=== PATIENT | male | born 1955 | race Caucasian/White ===

== ENCOUNTER 2020-03-05 18:48 | Observation (INO) | payer OTHER ==
[2020-03-05] MEDS ORDERED: Sodium Chloride 0.9% 1,000 ML IV ONE (19:00)
[2020-03-05] MEDS ORDERED: Sodium Chloride 0.9% 2.5 ML Syringe FLUSH PRN (19:00)
[2020-03-05] MEDS ORDERED: Sodium Chloride 0.9% 10 ML Syringe FLUSH PRN (19:00)
[2020-03-05] MEDS ORDERED: Acetaminophen 500 MG Tab PO ONE (19:05)
[2020-03-05] MEDS ORDERED: Acetaminophen 500 MG Tab ONE (19:06)
--- NOTE | 2020-03-05 19:17 | EDM.PDOC ---
<Emily Stacy R - Last Filed: 03/05/20 22:06> ED HPI GENERAL MEDICAL PROBLEM - General Chief Complaint: Fever Stated Complaint: FEVER OF 104 Time Seen by Provider: 03/05/20 18:53 Source of Information: Reports: Patient History Limitations: Reports: No Limitations - History of Present Illness INITIAL COMMENTS - FREE TEXT/NARRATIVE: Presents reporting dysuria. The patient states that about 4 hours ago he had burning and frequency of urination and his urine was dark. He also began having shaking chills. He had a formed brown stool today. No personal or family history of kidney stones, nausea, vomiting, abdominal pain, back pain, breathing problems. He has a history of diabetes, hypertension, dyslipidemia and has had an anxiety attack in the past. - Related Data Allergies Allergy/AdvReac Type Severity Reaction Status Date / Time No Known Allergies Allergy Verified 03/06/20 01:29 Home Meds: Home Meds . [Unable to Verify Home Med List] 03/05/20 [History] ED ROS GENERAL - Review of Systems Review Of Systems: Comprehensive ROS is negative, except as noted in HPI. ED EXAM, SEPSIS - Physical Exam Exam: See Below Exam Limited By: No Limitations General Appearance: Alert, No Apparent Distress Ears: Normal External Exam Nose: Normal Inspection Throat/Mouth: Normal Inspection Head: Atraumatic, Normocephalic Neck: Normal Inspection Respiratory/Chest: No Respiratory Distress, Lungs Clear, Normal Breath Sounds Cardiovascular: Normal Peripheral Pulses, Regular Rate, Rhythm, No Murmur GI/Abdominal Exam: Normal Bowel Sounds, Soft, Non-Tender, No Distention Rectal (Males) Exam: Normal Exam Back: Normal Inspection Extremities: Normal Inspection Neurological: Alert, Oriented, Normal Cognition Psychiatric: Normal Affect, Normal Mood Skin: Warm, Dry, Intact, Normal Color, No Rash Course - Re-Assessments/Exams Free Text/Narrative Re-Assessment/Exam: 03/05/20 22:06 Case discussed with . No source for elevated temp and lactate was found after extensive workup. The patient states he feels fine after po acetaminophen and ibuprofen. T 100.4 Departure - Departure Disposition: Refer to Observation Clinical Impression: Cholecystitis Sepsis Qualifiers: Sepsis type: sepsis due to unspecified organism Sepsis acute organ dysfunction status: without acute organ dysfunction Qualified Code(s): A41.9 - Sepsis, unspecified organism - Discharge Information <Cheryl Flores - Last Filed: 03/06/20 02:07> Course - Vital Signs Text/Narrative:: Patient with fevers, rigors, elevated lactic acid, with mild dysuria but unremarkable UA, white blood cell count not elevated, slightly elevated bilirubin level and mild hypoxia. Chest x-ray negative. CT chest also without acute findings or pneumonia. Ultrasound of the gallbladder does show some wall thickening and gallstones of the gallbladder though no pericholecystic fluid and a negative Boyce sign. However given the patient's sepsis concern for possible developing cholecystitis, therefore will be given Zosyn and admitted to the hospital. Last Recorded V/S: Last Vital Signs Temp 99 F 03/06/20 01:30 Pulse 86 03/06/20 01:30 Resp 20 03/06/20 01:30 BP 122/60 03/06/20 01:30 Pulse Ox 96 03/06/20 01:30 - Orders/Labs/Meds Orders: Active Orders 24 hr Category Date Time Status CULTURE BLOOD [BC] Stat Lab 03/05/20 18:55 Received CULTURE BLOOD [BC] Stat Lab 03/05/20 19:22 Received Sodium Chloride 0.9% [Normal Saline] 1,000 ml Med 03/05/20 23:45 Active IV ASDIRECTED Sodium Chloride 0.9% [Saline Flush] Med 03/05/20 19:00 Active 10 ml FLUSH ASDIRECTED PRN Sodium Chloride 0.9% [Saline Flush] Med 03/05/20 19:00 Active 2.5 ml FLUSH ASDIRECTED PRN Blood Culture x2 Reflex Set [OM.PC] Stat Oth 03/05/20 19:00 Ordered Isolation [COMM] Routine Oth 03/05/20 20:46 Active Saline Lock Insert [OM.PC] Stat Oth 03/05/20 19:00 Ordered Severe Sepsis Onset Time [OM.PC] Stat Oth 03/05/20 19:00 Ordered Medication Orders Sodium Chloride (Normal Saline) 1,000 mls @ 250 mls/hr IV ASDIRECTED [facility] Last Admin: 03/06/20 00:27 Dose: 250 mls/hr Documented by: ANH Sodium Chloride (Normal Saline) 1,000 mls @ 250 mls/hr IV ASDIRECTED [facility] Sodium Chloride (Saline Flush) 10 ml FLUSH ASDIRECTED PRN PRN Reason: Keep Vein Open Sodium Chloride (Saline Flush) 2.5 ml FLUSH ASDIRECTED PRN PRN Reason: Keep Vein Open Labs: Laboratory Tests 03/05/20 03/05/20 03/05/20 Range/Units 19:15 19:22 19:22 WBC 6.46 (4.0-11.0) K/uL RBC 4.34 L (4.50-5.90) M/uL Hgb 14.5 (13.0-17.0) g/dL Hct 43.2 (38.0-50.0) % MCV 99.5 H (80.0-98.0) fL MCH 33.4 H (27.0-32.0) pg MCHC 33.6 (31.0-37.0) g/dL RDW Std Deviation 50.5 (28.0-62.0) fl RDW Coeff of Matthew 14 (11.0-15.0) % Plt Count 61 L (150-400) K/uL MPV 12.30 H (7.40-12.00) fL Neut % (Auto) 86.4 H (48.0-80.0) % Lymph % (Auto) 9.0 L (16.0-40.0) % Bosque % (Auto) 3.6 (0.0-15.0) % Eos % (Auto) 0.8 (0.0-7.0) % Baso % (Auto) 0.2 (0.0-1.5) % Neut # (Auto) 5.6 (1.4-5.7) K/uL Lymph # (Auto) 0.6 (0.6-2.4) K/uL Bosque # (Auto) 0.2 (0.0-0.8) K/uL Eos # (Auto) 0.1 (0.0-0.7) K/uL Baso # (Auto) 0.0 (0.0-0.1) K/uL Nucleated RBC % 0.0 /100WBC Nucleated RBCs # 0 K/uL Lactate (0.20-2.00) mmol/L Sodium 141 (136-148) mmol/L Potassium 3.9 (3.5-5.1) mmol/L Chloride 106 (98-107) mmol/L Carbon Dioxide 22.5 (21.0-32.0) mmol/L BUN 13 (7.0-18.0) mg/dL Creatinine 1.0 (0.8-1.3) mg/dL Est Cr Clr Drug Dosing 75.61 mL/min Estimated GFR (MDRD) > 60.0 ml/min Glucose 143 H (74-106) mg/dL Calcium 8.9 (8.5-10.1) mg/dL Total Bilirubin 1.5 H (0.2-1.0) mg/dL AST 55 H (15-37) IU/L ALT 50 (14-63) IU/L Alkaline Phosphatase 111 (46-116) U/L Troponin I (0.000-0.056) ng/mL Total Protein 7.2 (6.4-8.2) g/dL Albumin 3.6 (3.4-5.0) g/dL Globulin 3.6 (2.6-4.0) g/dL Albumin/Globulin Ratio 1.0 (0.9-1.6) Urine Color YELLOW Urine Appearance CLEAR Urine pH 5.5 (5.0-8.0) Ur Specific Reading >= 1.030 (1.001-1.035) Urine Protein NEGATIVE (NEGATIVE) mg/dL Urine Glucose (UA) >=1000 (NEGATIVE) mg/dL Urine Ketones NEGATIVE (NEGATIVE) mg/dL Urine Occult Blood SMALL H (NEGATIVE) Urine Nitrite NEGATIVE (NEGATIVE) Urine Bilirubin NEGATIVE (NEGATIVE) Urine Urobilinogen 0.2 (<2.0) EU/dL Ur Leukocyte Esterase NEGATIVE (NEGATIVE) Urine RBC 1-2 (0-2/HPF) Urine WBC 0-1 (0-5/HPF) Ur Epithelial Cells RARE (NONE-FEW) Urine Bacteria RARE (NEGATIVE) SARS Virus RNA (PCR) (NEGATIVE) 03/05/20 03/05/20 03/05/20 Range/Units 19:22 20:20 20:35 WBC (4.0-11.0) K/uL RBC (4.50-5.90) M/uL Hgb (13.0-17.0) g/dL Hct (38.0-50.0) % MCV (80.0-98.0) fL MCH (27.0-32.0) pg MCHC (31.0-37.0) g/dL RDW Std Deviation (28.0-62.0) fl RDW Coeff of Matthew (11.0-15.0) % Plt Count (150-400) K/uL MPV (7.40-12.00) fL Neut % (Auto) (48.0-80.0) % Lymph % (Auto) (16.0-40.0) % Bosque % (Auto) (0.0-15.0) % Eos % (Auto) (0.0-7.0) % Baso % (Auto) (0.0-1.5) % Neut # (Auto) (1.4-5.7) K/uL Lymph # (Auto) (0.6-2.4) K/uL Bosque # (Auto) (0.0-0.8) K/uL Eos # (Auto) (0.0-0.7) K/uL Baso # (Auto) (0.0-0.1) K/uL Nucleated RBC % /100WBC Nucleated RBCs # K/uL Lactate 3.1 H* (0.20-2.00) mmol/L Sodium (136-148) mmol/L Potassium (3.5-5.1) mmol/L Chloride (98-107) mmol/L Carbon Dioxide (21.0-32.0) mmol/L BUN (7.0-18.0) mg/dL Creatinine (0.8-1.3) mg/dL Est Cr Clr Drug Dosing mL/min Estimated GFR (MDRD) ml/min Glucose (74-106) mg/dL Calcium (8.5-10.1) mg/dL Total Bilirubin (0.2-1.0) mg/dL AST (15-37) IU/L ALT (14-63) IU/L Alkaline Phosphatase (46-116) U/L Troponin I < 0.050 (0.000-0.056) ng/mL Total Protein (6.4-8.2) g/dL Albumin (3.4-5.0) g/dL Globulin (2.6-4.0) g/dL Albumin/Globulin Ratio (0.9-1.6) Urine Color Urine Appearance Urine pH (5.0-8.0) Ur Specific Reading (1.001-1.035) Urine Protein (NEGATIVE) mg/dL Urine Glucose (UA) (NEGATIVE) mg/dL Urine Ketones (NEGATIVE) mg/dL Urine Occult Blood (NEGATIVE) Urine Nitrite (NEGATIVE) Urine Bilirubin (NEGATIVE) Urine Urobilinogen (<2.0) EU/dL Ur Leukocyte Esterase (NEGATIVE) Urine RBC (0-2/HPF) Urine WBC (0-5/HPF) Ur Epithelial Cells (NONE-FEW) Urine Bacteria (NEGATIVE) SARS Virus RNA (PCR) NEGATIVE (NEGATIVE) 03/05/20 Range/Units 23:30 WBC (4.0-11.0) K/uL RBC (4.50-5.90) M/uL Hgb (13.0-17.0) g/dL Hct (38.0-50.0) % MCV (80.0-98.0) fL MCH (27.0-32.0) pg MCHC (31.0-37.0) g/dL RDW Std Deviation (28.0-62.0) fl RDW Coeff of Matthew (11.0-15.0) % Plt Count (150-400) K/uL MPV (7.40-12.00) fL Neut % (Auto) (48.0-80.0) % Lymph % (Auto) (16.0-40.0) % Bosque % (Auto) (0.0-15.0) % Eos % (Auto) (0.0-7.0) % Baso % (Auto) (0.0-1.5) % Neut # (Auto) (1.4-5.7) K/uL Lymph # (Auto) (0.6-2.4) K/uL Bosque # (Auto) (0.0-0.8) K/uL Eos # (Auto) (0.0-0.7) K/uL Baso # (Auto) (0.0-0.1) K/uL Nucleated RBC % /100WBC Nucleated RBCs # K/uL Lactate 2.0 (0.20-2.00) mmol/L Sodium (136-148) mmol/L Potassium (3.5-5.1) mmol/L Chloride (98-107) mmol/L Carbon Dioxide (21.0-32.0) mmol/L BUN (7.0-18.0) mg/dL Creatinine (0.8-1.3) mg/dL Est Cr Clr Drug Dosing mL/min Estimated GFR (MDRD) ml/min Glucose (74-106) mg/dL Calcium (8.5-10.1) mg/dL Total Bilirubin (0.2-1.0) mg/dL AST (15-37) IU/L ALT (14-63) IU/L Alkaline Phosphatase (46-116) U/L Troponin I (0.000-0.056) ng/mL Total Protein (6.4-8.2) g/dL Albumin (3.4-5.0) g/dL Globulin (2.6-4.0) g/dL Albumin/Globulin Ratio (0.9-1.6) Urine Color Urine Appearance Urine pH (5.0-8.0) Ur Specific Reading (1.001-1.035) Urine Protein (NEGATIVE) mg/dL Urine Glucose (UA) (NEGATIVE) mg/dL Urine Ketones (NEGATIVE) mg/dL Urine Occult Blood (NEGATIVE) Urine Nitrite (NEGATIVE) Urine Bilirubin (NEGATIVE) Urine Urobilinogen (<2.0) EU/dL Ur Leukocyte Esterase (NEGATIVE) Urine RBC (0-2/HPF) Urine WBC (0-5/HPF) Ur Epithelial Cells (NONE-FEW) Urine Bacteria (NEGATIVE) SARS Virus RNA (PCR) (NEGATIVE) Meds: Medications Generic Name Dose Route Start Last Admin Trade Name Freq PRN Reason Stop Dose Admin Sodium Chloride 1,000 mls @ 250 mls/hr 03/05/20 23:45 03/06/20 00:27 Normal Saline IV 250 mls/hr ASDIRECTED MCKENZIE Administration Sodium Chloride 1,000 mls @ 250 mls/hr 03/06/20 01:30 Normal Saline IV ASDIRECTED MCKENZIE Sodium Chloride 10 ml 03/05/20 19:00 Saline Flush FLUSH ASDIRECTED PRN Keep Vein Open Sodium Chloride 2.5 ml 03/05/20 19:00 Saline Flush FLUSH ASDIRECTED PRN Keep Vein Open Discontinued Medications Generic Name Dose Route Start Last Admin Trade Name Freq PRN Reason Stop Dose Admin Acetaminophen 1,000 mg 03/05/20 19:05 03/05/20 19:10 Tylenol Extra Strength PO 03/05/20 19:06 1,000 mg ONETIME ONE Administration Acetaminophen Confirm 03/05/20 19:06 03/05/20 19:11 Tylenol Extra Strength Administered 03/05/20 19:07 Not Given Dose 1,000 mg .ROUTE .STK-MED ONE Sodium Chloride 1,000 mls @ 999 mls/hr 03/05/20 19:00 03/05/20 19:10 Normal Saline IV 03/05/20 20:00 999 mls/hr .Bolus ONE Administration Ceftriaxone Sodium 1 gm/ 50 mls @ 100 mls/hr 03/05/20 20:43 03/05/20 21:01 Sodium Chloride IV 03/05/20 21:12 100 mls/hr ONETIME ONE Administration Sodium Chloride Confirm 03/05/20 20:57 03/05/20 23:45 Normal Saline Administered 03/05/20 20:58 Not Given Dose 50 mls @ as directed .ROUTE .STK-MED ONE Piperacillin Sod/Tazobactam 50 mls @ 100 mls/hr 03/05/20 23:32 03/05/20 23:50 Sod 3.375 gm/ Sodium Chloride IV 03/06/20 00:01 100 mls/hr ONETIME ONE Administration Ibuprofen 600 mg 03/05/20 20:11 03/05/20 20:22 Motrin PO 03/05/20 20:12 600 mg ONETIME ONE Administration Ibuprofen Confirm 03/05/20 20:11 03/05/20 21:02 Motrin Administered 03/05/20 20:12 Not Given Dose 600 mg .ROUTE .STK-MED ONE - Re-Assessments/Exams Free Text/Narrative Re-Assessment/Exam: 03/05/20 22:41 Patient received in signout from Emily Stacy. Pending right upper quadrant ultrasound. Per mineral technologist preliminary report, gallbladder with gallstones and wall thickening without pericholecystic fluid and with negative Boyce sign. Will defer to radiology read. 03/06/20 00:09 Radiology read of the ultrasound shows wall thickening and gallstones, no pericholecystic fluid. This may represent early cholecystitis. Antibiotics broadened to Zosyn. I reevaluated the patient and reexamined him. He is having no right upper quadrant tenderness at this time. He feels well. However I discussed with the patient the need for admission to the hospital overnight for monitoring. He did agree with this plan. Dr. Bradley called back and accepts the admission. Recommends to place the patient under observation at this time and he will reassess the patient in the morning to determine if surgery consultation would be necessary. Departure - Departure Time of Disposition: 00:02 Sepsis Event Note (ED) - Focused Exam Vital Signs: Vital Signs Temp Temp Pulse Resp BP Pulse Ox 03/05/20 23:45 99.2 F 87 20 97/62 96 03/05/20 22:50 80 18 123/60 99 03/05/20 21:45 111 H 18 117/68 93 L 03/05/20 21:00 101.7 F H 118 H 128/60 03/05/20 20:47 124 H 20 153/68 H 93 L 03/05/20 20:23 131 H 20 139/60 93 L 03/05/20 20:22 103.6 F H 03/05/20 19:10 103.1 F H 03/05/20 19:00 103.1 F H 118 H 22 H 148/76 H 95 - My Orders Last 24 Hours: My Active Orders 03/05/20 23:45 Sodium Chloride 0.9% [Normal Saline] 1,000 ml IV ASDIRECTED - Assessment/Plan Last 24 Hours: My Active Orders 03/05/20 23:45 Sodium Chloride 0.9% [Normal Saline] 1,000 ml IV ASDIRECTED
[2020-03-05 19:51] LABS: BLOOD UREA NITROGEN,BUN 13 mg/dL (7.0-18.0); CARBON DIOXIDE,CO2 22.5 mmol/L (21.0-32.0); CHLORIDE,CL 106 mmol/L (98-107); GLUCOSE RANDOM 143 mg/dL (74-106); POTASSIUM,K 3.9 mmol/L (3.5-5.1); SODIUM,NA 141 mmol/L (136-148)
[2020-03-05] MEDS ORDERED: Ibuprofen 400 MG Tab PO ONE (20:11)
[2020-03-05] MEDS ORDERED: Ibuprofen 600 MG Tab ONE (20:11)
--- NOTE | 2020-03-05 20:30 | CR ---
Chest: 2 views of the chest were obtained. Comparison: Chest: 2 views of the chest were obtained. Comparison: No prior chest imaging is available. Heart size and mediastinum are normal. Lungs show no acute parenchymal change. Prior cervical spine surgery is seen which also involves T1. Scattered disc space narrowing and endplate osteophytes are seen within the thoracic spine. Impression: 1. Findings as noted above. 2. Nothing acute is appreciated. Diagnostic code #2 This report was dictated in MDT
[2020-03-05] MEDS ORDERED: cefTRIAXone 1 GM in Sodium Chloride 0.9% 50 ML IV ONE (20:43)
[2020-03-05] MEDS ORDERED: Sodium Chloride 0.9% 50 ML ONE (20:57)
--- NOTE | 2020-03-05 21:47 | CT ---
CT chest Technique: Multiple axial sections through the chest were obtained. Intravenous contrast not utilized. Comparison: Prior chest x-ray performed earlier on the same day (7:50 PM). Findings: Small lymph nodes are seen within the mediastinum which are minimally prominent. There is a small calcified gallstones within the gallbladder. Entire spleen is not seen but is felt to be enlarged. No axillary adenopathy is seen. No pericardial thickening is seen. Lungs are clear with no acute parenchymal change. No pleural effusions are seen. Bone window settings shows previous lower cervical spine surgery. No acute osseous finding is appreciated. Impression: 1. Possible splenomegaly with spleen not completely included on this exam. 2. Slightly prominent mediastinal lymph nodes with largest lymph node measures about 1.5 cm. Recommend repeat noncontrast chest CT study in 4 months which would occur in June, to evaluate for stability. 3. Other findings as noted above. Diagnostic code #9 This report was dictated in MDT
--- NOTE | 2020-03-05 23:26 | US ---
INDICATION: Elevated bilirubin, sepsis TECHNIQUE: Ultrasound abdomen limited. Sonographic images of the right upper quadrant were obtained using jane-scale and color Doppler images. COMPARISON: None FINDINGS: Liver: 16.7 centimeters with diffuse fatty infiltration. No masses. No intrahepatic biliary dilatation. Gallbladder: Gallstones with gallbladder wall thickening up to 6 millimeters. No pericholecystic fluid. Common bile duct: 6 mm. Pancreas: Normal. Right kidney: 13.7 cm. Normal echotexture and cortex. No masses, stones, or hydronephrosis. Vasculature: Proximal abdominal aorta and IVC are not well visualized. IMPRESSION: Diffuse fatty infiltration of the liver. Cholelithiasis with gallbladder wall thickening. Normal common bile duct. Dictated by Garrett San MD @ 03/05/2020 11:24:13 PM Dictated by: Garrett San MD @ 03/05/2020 23:24:20 (Electronically Signed)
[2020-03-05] MEDS ORDERED: Piperacillin/Tazobactam 3.375 GM in Sodium Chloride 0.9% 50 ML IV ONE (23:32)
[2020-03-06] MEDS: Sodium Chloride 0.9% 1,000 ML IV SCH ×6 (00:27→17:39)
[2020-03-06] MEDS ORDERED: Thiamine 100 MG in Sodium Chloride 0.9% 100 ML IV SCH (01:30)
[2020-03-06] MEDS: Piperacillin/Tazobactam 3.375 GM in Sodium Chloride 0.9% 50 ML IV SCH ×3 (05:39→18:13)
[2020-03-06 06:23] LABS: BLOOD UREA NITROGEN,BUN 15 mg/dL (7.0-18.0); CARBON DIOXIDE,CO2 20.3 mmol/L (21.0-32.0); CHLORIDE,CL 109 mmol/L (98-107); GLUCOSE RANDOM 119 mg/dL (74-106); POTASSIUM,K 3.6 mmol/L (3.5-5.1); SODIUM,NA 142 mmol/L (136-148)
--- NOTE | 2020-03-06 08:36 | PCM.HP.2 ---
H&P History of Present Illness - General Date of Service: 03/06/20 Admit Problem/Dx: Admission Diagnosis/Problem Admission Diagnosis/Problem Sepsis - History of Present Illness Initial Comments - Free Text/Narative: 64 yo male with pmh of HTN and DM who presented to the ED with one day history of fever, rigors, and chills. PAtient reports increased urinary frequency and burning when he urinates. He denies any sick contacts. He denies any cough, shortness of breath, abdominal pain, nausea, vomtiting or diarrhea. In the ED he was noted to have a fever and was tachycardic. HE recieved IV fluids and Zosyn. CT scan of chest reported mildly prominated mediastinal lymphnodes and recommended repeat CT scan in four months. Ultrasound of abdomen reported gallbladder wall thickening and gallstone. - Related Data Allergies/Adverse Reactions: Allergies Allergy/AdvReac Type Severity Reaction Status Date / Time pollens Allergy Other Uncoded 03/06/20 03:25 Home Medications: Home Meds Canagliflozin [Invokana] 100 mg PO DAILY 03/06/20 [History] Cetirizine [ZyrTEC] 10 mg PO BEDTIME 03/06/20 [History] Gabapentin [Neurontin] 300 mg PO DAILY 03/06/20 [History] Losartan [Cozaar] 50 mg PO DAILY 03/06/20 [History] Pravastatin [Pravachol] 40 mg PO BEDTIME 03/06/20 [History] Saxagliptin HCl [Onglyza] 5 mg PO DAILY 03/06/20 [History] glyBURIDE/Metformin HCl [Glyburid-Metformin 1.25-250 mg] 5 - 1,000 mg PO WITHDINNER 03/06/20 [History] glyBURIDE/Metformin HCl [Glyburid-Metformin 1.25-250 mg] 7.5 - 1,500 mg PO QAM 03/06/20 [History] levoFLOXacin [Levaquin] 750 mg PO DAILY #9 tab 03/07/20 [Rx] Past Medical History HEENT History: Reports: Hard of Hearing Cardiovascular History: Reports: High Cholesterol, Hypertension Respiratory History: Reports: None Gastrointestinal History: Reports: None Genitourinary History: Reports: None Musculoskeletal History: Reports: Arthritis Neurological History: Reports: None Psychiatric History: Reports: ADHD Endocrine/Metabolic History: Reports: Diabetes, Type II Hematologic History: Reports: None Immunologic History: Reports: None Oncologic (Cancer) History: Reports: None Dermatologic History: Reports: None - Past Surgical History Head Surgeries/Procedures: Reports: None HEENT Surgical History: Reports: None Cardiovascular Surgical History: Reports: None GI Surgical History: Reports: None Neurological Surgical History: Reports: C-Spine, Other (See Below) Other Neurological Surgeries/Procedures: Fused 3 vertebra fused in his neck and has a metal plate. Musculoskeletal Surgical History: Reports: None Social & Family History - Tobacco Use Smoking Status *Q: Former Smoker Used Tobacco, but Quit: Yes Month/Year Tobacco Last Used: 1997 - Caffeine Use Caffeine Use: Reports: Coffee, Tea Other Caffeine Use: 1 cup coffee in morning. 1 gallon watered down tea/day. - Recreational Drug Use Recreational Drug Use: No H&P Review of Systems - Review of Systems: Review Of Systems: Comprehensive ROS is negative, except as noted in HPI. Exam - Exam Exam: See Below - Vital Signs Vital Signs: Last Vital Signs Temp 36.9 C 03/06/20 04:10 Pulse 78 03/06/20 04:10 Resp 19 03/06/20 04:10 BP 101/64 03/06/20 04:10 Pulse Ox 95 03/06/20 04:10 Weight: 119.5 kg - Exam General: Alert, Oriented HEENT: Mucosa Moist & [place] Neck: Supple Lungs: Clear to Auscultation, Normal Respiratory Effort Cardiovascular: Regular Rate, Regular Rhythm GI/Abdominal Exam: Normal Bowel Sounds, Soft, Non-Tender Rectal (Males) Exam: Normal Exam, Normal Rectal Tone, Prostate Normal Extremities: Non-Tender, No Pedal Edema Skin: Warm, Dry, Intact Neurological: No: Focal Deficit - Patient Data Lab Results Last 24 hrs: Laboratory Results - last 24 hr 03/05/20 03/05/20 03/05/20 Range/Units 18:54 19:15 19:22 WBC (4.0-11.0) K/uL RBC (4.50-5.90) M/uL Hgb (13.0-17.0) g/dL Hct (38.0-50.0) % MCV (80.0-98.0) fL MCH (27.0-32.0) pg MCHC (31.0-37.0) g/dL RDW Std Deviation (28.0-62.0) fl RDW Coeff of Matthew (11.0-15.0) % Plt Count (150-400) K/uL MPV (7.40-12.00) fL Neut % (Auto) (48.0-80.0) % Lymph % (Auto) (16.0-40.0) % [place] % (Auto) (0.0-15.0) % Eos % (Auto) (0.0-7.0) % Baso % (Auto) (0.0-1.5) % Neut # (Auto) (1.4-5.7) K/uL Lymph # (Auto) (0.6-2.4) K/uL [place] # (Auto) (0.0-0.8) K/uL Eos # (Auto) (0.0-0.7) K/uL Baso # (Auto) (0.0-0.1) K/uL Nucleated RBC % /100WBC Nucleated RBCs # K/uL Lactate (0.20-2.00) mmol/L Sodium 141 (136-148) mmol/L Potassium 3.9 (3.5-5.1) mmol/L Chloride 106 (98-107) mmol/L Carbon Dioxide 22.5 (21.0-32.0) mmol/L BUN 13 (7.0-18.0) mg/dL Creatinine 1.0 (0.8-1.3) mg/dL Est Cr Clr Drug Dosing 75.61 mL/min Estimated GFR (MDRD) > 60.0 ml/min Glucose 143 H (74-106) mg/dL POC Glucose 147 H (60-110) mg/dL Calcium 8.9 (8.5-10.1) mg/dL Total Bilirubin 1.5 H (0.2-1.0) mg/dL AST 55 H (15-37) IU/L ALT 50 (14-63) IU/L Alkaline Phosphatase 111 (46-116) U/L Troponin I (0.000-0.056) ng/mL Total Protein 7.2 (6.4-8.2) g/dL Albumin 3.6 (3.4-5.0) g/dL Globulin 3.6 (2.6-4.0) g/dL Albumin/Globulin Ratio 1.0 (0.9-1.6) Urine Color YELLOW Urine Appearance CLEAR Urine pH 5.5 (5.0-8.0) Ur Specific Marion >= 1.030 (1.001-1.035) Urine Protein NEGATIVE (NEGATIVE) mg/dL Urine Glucose (UA) >=1000 (NEGATIVE) mg/dL Urine Ketones NEGATIVE (NEGATIVE) mg/dL Urine Occult Blood SMALL H (NEGATIVE) Urine Nitrite NEGATIVE (NEGATIVE) Urine Bilirubin NEGATIVE (NEGATIVE) Urine Urobilinogen 0.2 (<2.0) EU/dL Ur Leukocyte Esterase NEGATIVE (NEGATIVE) Urine RBC 1-2 (0-2/HPF) Urine WBC 0-1 (0-5/HPF) Ur Epithelial Cells RARE (NONE-FEW) Urine Bacteria RARE (NEGATIVE) SARS Virus RNA (PCR) (NEGATIVE) 03/05/20 03/05/20 03/05/20 Range/Units 19:22 19:22 20:20 WBC 6.46 (4.0-11.0) K/uL RBC 4.34 L (4.50-5.90) M/uL Hgb 14.5 (13.0-17.0) g/dL Hct 43.2 (38.0-50.0) % MCV 99.5 H (80.0-98.0) fL MCH 33.4 H (27.0-32.0) pg MCHC 33.6 (31.0-37.0) g/dL RDW Std Deviation 50.5 (28.0-62.0) fl RDW Coeff of Matthew 14 (11.0-15.0) % Plt Count 61 L (150-400) K/uL MPV 12.30 H (7.40-12.00) fL Neut % (Auto) 86.4 H (48.0-80.0) % Lymph % (Auto) 9.0 L (16.0-40.0) % [place] % (Auto) 3.6 (0.0-15.0) % Eos % (Auto) 0.8 (0.0-7.0) % Baso % (Auto) 0.2 (0.0-1.5) % Neut # (Auto) 5.6 (1.4-5.7) K/uL Lymph # (Auto) 0.6 (0.6-2.4) K/uL [place] # (Auto) 0.2 (0.0-0.8) K/uL Eos # (Auto) 0.1 (0.0-0.7) K/uL Baso # (Auto) 0.0 (0.0-0.1) K/uL Nucleated RBC % 0.0 /100WBC Nucleated RBCs # 0 K/uL Lactate 3.1 H* (0.20-2.00) mmol/L Sodium (136-148) mmol/L Potassium (3.5-5.1) mmol/L Chloride (98-107) mmol/L Carbon Dioxide (21.0-32.0) mmol/L BUN (7.0-18.0) mg/dL Creatinine (0.8-1.3) mg/dL Est Cr Clr Drug Dosing mL/min Estimated GFR (MDRD) ml/min Glucose (74-106) mg/dL POC Glucose (60-110) mg/dL Calcium (8.5-10.1) mg/dL Total Bilirubin (0.2-1.0) mg/dL AST (15-37) IU/L ALT (14-63) IU/L Alkaline Phosphatase (46-116) U/L Troponin I (0.000-0.056) ng/mL Total Protein (6.4-8.2) g/dL Albumin (3.4-5.0) g/dL Globulin (2.6-4.0) g/dL Albumin/Globulin Ratio (0.9-1.6) Urine Color Urine Appearance Urine pH (5.0-8.0) Ur Specific Marion (1.001-1.035) Urine Protein (NEGATIVE) mg/dL Urine Glucose (UA) (NEGATIVE) mg/dL Urine Ketones (NEGATIVE) mg/dL Urine Occult Blood (NEGATIVE) Urine Nitrite (NEGATIVE) Urine Bilirubin (NEGATIVE) Urine Urobilinogen (<2.0) EU/dL Ur Leukocyte Esterase (NEGATIVE) Urine RBC (0-2/HPF) Urine WBC (0-5/HPF) Ur Epithelial Cells (NONE-FEW) Urine Bacteria (NEGATIVE) SARS Virus RNA (PCR) NEGATIVE (NEGATIVE) 03/05/20 03/05/20 03/06/20 Range/Units 20:35 23:30 05:37 WBC 12.40 H (4.0-11.0) K/uL RBC 3.80 L (4.50-5.90) M/uL Hgb 12.8 L (13.0-17.0) g/dL Hct 37.9 L (38.0-50.0) % MCV 99.7 H (80.0-98.0) fL MCH 33.7 H (27.0-32.0) pg MCHC 33.8 (31.0-37.0) g/dL RDW Std Deviation 50.5 (28.0-62.0) fl RDW Coeff of Matthew 14 (11.0-15.0) % Plt Count 54 L (150-400) K/uL MPV 12.50 H (7.40-12.00) fL Neut % (Auto) 79.4 (48.0-80.0) % Lymph % (Auto) 9.7 L (16.0-40.0) % [place] % (Auto) 10.3 (0.0-15.0) % Eos % (Auto) 0.4 (0.0-7.0) % Baso % (Auto) 0.2 (0.0-1.5) % Neut # (Auto) 9.9 H (1.4-5.7) K/uL Lymph # (Auto) 1.2 (0.6-2.4) K/uL [place] # (Auto) 1.3 H (0.0-0.8) K/uL Eos # (Auto) 0.1 (0.0-0.7) K/uL Baso # (Auto) 0.0 (0.0-0.1) K/uL Nucleated RBC % 0.0 /100WBC Nucleated RBCs # 0 K/uL Lactate 2.0 (0.20-2.00) mmol/L Sodium (136-148) mmol/L Potassium (3.5-5.1) mmol/L Chloride (98-107) mmol/L Carbon Dioxide (21.0-32.0) mmol/L BUN (7.0-18.0) mg/dL Creatinine (0.8-1.3) mg/dL Est Cr Clr Drug Dosing mL/min Estimated GFR (MDRD) ml/min Glucose (74-106) mg/dL POC Glucose (60-110) mg/dL Calcium (8.5-10.1) mg/dL Total Bilirubin (0.2-1.0) mg/dL AST (15-37) IU/L ALT (14-63) IU/L Alkaline Phosphatase (46-116) U/L Troponin I < 0.050 (0.000-0.056) ng/mL Total Protein (6.4-8.2) g/dL Albumin (3.4-5.0) g/dL Globulin (2.6-4.0) g/dL Albumin/Globulin Ratio (0.9-1.6) Urine Color Urine Appearance Urine pH (5.0-8.0) Ur Specific Marion (1.001-1.035) Urine Protein (NEGATIVE) mg/dL Urine Glucose (UA) (NEGATIVE) mg/dL Urine Ketones (NEGATIVE) mg/dL Urine Occult Blood (NEGATIVE) Urine Nitrite (NEGATIVE) Urine Bilirubin (NEGATIVE) Urine Urobilinogen (<2.0) EU/dL Ur Leukocyte Esterase (NEGATIVE) Urine RBC (0-2/HPF) Urine WBC (0-5/HPF) Ur Epithelial Cells (NONE-FEW) Urine Bacteria (NEGATIVE) SARS Virus RNA (PCR) (NEGATIVE) 03/06/20 Range/Units 05:37 WBC (4.0-11.0) K/uL RBC (4.50-5.90) M/uL Hgb (13.0-17.0) g/dL Hct (38.0-50.0) % MCV (80.0-98.0) fL MCH (27.0-32.0) pg MCHC (31.0-37.0) g/dL RDW Std Deviation (28.0-62.0) fl RDW Coeff of Matthew (11.0-15.0) % Plt Count (150-400) K/uL MPV (7.40-12.00) fL Neut % (Auto) (48.0-80.0) % Lymph % (Auto) (16.0-40.0) % [place] % (Auto) (0.0-15.0) % Eos % (Auto) (0.0-7.0) % Baso % (Auto) (0.0-1.5) % Neut # (Auto) (1.4-5.7) K/uL Lymph # (Auto) (0.6-2.4) K/uL [place] # (Auto) (0.0-0.8) K/uL Eos # (Auto) (0.0-0.7) K/uL Baso # (Auto) (0.0-0.1) K/uL Nucleated RBC % /100WBC Nucleated RBCs # K/uL Lactate (0.20-2.00) mmol/L Sodium 142 (136-148) mmol/L Potassium 3.6 (3.5-5.1) mmol/L Chloride 109 H (98-107) mmol/L Carbon Dioxide 20.3 L (21.0-32.0) mmol/L BUN 15 (7.0-18.0) mg/dL Creatinine 0.9 (0.8-1.3) mg/dL Est Cr Clr Drug Dosing 84.01 mL/min Estimated GFR (MDRD) > 60.0 ml/min Glucose 119 H (74-106) mg/dL POC Glucose (60-110) mg/dL Calcium 8.2 L (8.5-10.1) mg/dL Total Bilirubin 1.7 H (0.2-1.0) mg/dL AST 44 H (15-37) IU/L ALT 41 (14-63) IU/L Alkaline Phosphatase 80 (46-116) U/L Troponin I (0.000-0.056) ng/mL Total Protein 5.8 L (6.4-8.2) g/dL Albumin 2.8 L (3.4-5.0) g/dL Globulin 3.0 (2.6-4.0) g/dL Albumin/Globulin Ratio 0.9 (0.9-1.6) Urine Color Urine Appearance Urine pH (5.0-8.0) Ur Specific Marion (1.001-1.035) Urine Protein (NEGATIVE) mg/dL Urine Glucose (UA) (NEGATIVE) mg/dL Urine Ketones (NEGATIVE) mg/dL Urine Occult Blood (NEGATIVE) Urine Nitrite (NEGATIVE) Urine Bilirubin (NEGATIVE) Urine Urobilinogen (<2.0) EU/dL Ur Leukocyte Esterase (NEGATIVE) Urine RBC (0-2/HPF) Urine WBC (0-5/HPF) Ur Epithelial Cells (NONE-FEW) Urine Bacteria (NEGATIVE) SARS Virus RNA (PCR) (NEGATIVE) Result Diagrams: 03/07/20 05:20 03/07/20 05:20 Naseem Results Last 24 hrs: Microbiology 03/05/20 20:20 Influenza Type A Antigen Screen - Final Nasopharyngeal Swab NEGATIVE INFLUENZA A VIRUS AG REFERENCE RANGE: NEGATIVE Influenza Type B Antigen Screen - Final NEGATIVE INFLUENZA B VIRUS AG REFERENCE RANGE: NEGATIVE Sepsis Event Note - Evaluation Sepsis Screening Result: No Definite Risk - Focused Exam Vital Signs: Vital Signs Temp Pulse Resp BP Pulse Ox 03/06/20 04:10 36.9 C 78 19 101/64 95 03/06/20 01:30 37.2 C 86 20 122/60 96 03/06/20 01:15 87 18 104/67 97 03/05/20 23:45 37.3 C 87 20 97/62 96 03/05/20 22:50 80 18 123/60 99 03/05/20 21:45 111 H 18 117/68 93 L 03/05/20 21:00 38.7 C H 118 H 128/60 03/05/20 20:47 124 H 20 153/68 H 93 L Date Exam was Performed: 03/09/20 Time Exam was Performed: 10:43 Problem List Initiated/Reviewed/Updated: Yes Orders Last 24hrs: Active Orders 24 hr Category Date Time Status Patient Status [ADT] Routine ADT 03/06/20 00:08 Active Up ad Chely [RC] ASDIRECTED Care 03/06/20 01:18 Active Vital Signs [RC] Q4H Care 03/06/20 01:18 Active Nothing Per Oral Diet [DIET] Diet 03/06/20 Breakfast Active CULTURE BLOOD [BC] Stat Lab 03/05/20 18:55 Received CULTURE BLOOD [BC] Stat Lab 03/05/20 19:22 Received Piperacillin/Tazobactam [Piperacil-Tazobact] 3.375 gm Med 03/06/20 06:00 Active Sodium Chloride 0.9% [Normal Saline] 50 ml IV Q6H Sodium Chloride 0.9% [Normal Saline] 1,000 ml Med 03/06/20 01:30 Active IV ASDIRECTED Sodium Chloride 0.9% [Saline Flush] Med 03/05/20 19:00 Active 10 ml FLUSH ASDIRECTED PRN Sodium Chloride 0.9% [Saline Flush] Med 03/05/20 19:00 Active 2.5 ml FLUSH ASDIRECTED PRN Blood Culture x2 Reflex Set [OM.PC] Stat Ot 03/05/20 19:00 Ordered Isolation [COMM] Routine Ot 03/05/20 20:46 Active Saline Lock Insert [OM.PC] Stat Ot 03/05/20 19:00 Ordered Severe Sepsis Onset Time [OM.PC] Stat Ot 03/05/20 19:00 Ordered Medication Orders Sodium Chloride (Normal Saline) 1,000 mls @ 250 mls/hr IV ASDIRECTED [facility] Last Admin: 03/06/20 08:29 Dose: 250 mls/hr Documented by: Infusion: 03/06/20 08:17 Dose: 250 mls/hr Documented by: Admin: 03/06/20 04:17 Dose: 250 mls/hr Documented by: NERI Piperacillin Sod/Tazobactam (Sod 3.375 gm/ Sodium Chloride) 50 mls @ 100 mls/hr IV Q6H [facility] Last Admin: 03/06/20 05:39 Dose: 100 mls/hr Documented by: NERI Sodium Chloride (Saline Flush) 10 ml FLUSH ASDIRECTED PRN PRN Reason: Keep Vein Open Sodium Chloride (Saline Flush) 2.5 ml FLUSH ASDIRECTED PRN PRN Reason: Keep Vein Open Assessment/Plan Comment:: 64 yo male admitted for fever of unknown origin. Plan is continue zosyn for know until sepsis ruled out. Lactate acid has normalized. CT scan of abdomen and pelvis ordered. Only localizing symptoms is urinary so could be UTI. Prostate is not tender on exam. Urine culture ordered. Blood cultures pending. Patient does have thrombocytopenia and possible spenomegaly on CT. [place] test ordered. Covid negative.
--- NOTE | 2020-03-06 10:39 | CT ---
CT abdomen and pelvis Technique: Multiple axial sections were obtained from above the dome of the diaphragm inferiorly through the pubic symphysis. Intravenous and oral contrast not utilized. Comparison: No prior abdominal imaging is available. Findings: Kidneys show no abnormal calcifications. No ureteral dilatation or ureteral stone is seen. No discrete cyst is seen. No solid abnormality appreciated on this noncontrast exam. Visualized lung bases show nothing acute. Liver contains no focal abnormality. 2 calcified gallstones are seen within the gallbladder. Smaller gallstone measures 5 mm. Spleen is slightly enlarged with length of 15.1 cm. Adrenal glands show no nodule. Pancreas shows no discrete abnormality. Aorta shows mild atherosclerotic calcification without aneurysm. No retroperitoneal adenopathy or mesenteric abnormalities are seen. No pelvic mass or adenopathy is seen. No free fluid or inflammatory change is appreciated. Appendix not definitely visualized. Bone window settings were reviewed which shows mild scattered degenerative change throughout the spine. No acute osseous finding is appreciated. Impression: 1. 2 calcified gallstones. 2. No renal calculi, ureteral dilatation or ureteral stone is seen. 3. Mild splenomegaly with length of 15.1 cm. Diagnostic code #3 This report was dictated in MDT
[2020-03-06] MEDS: Insulin Aspart 100 Units/ML 3 ML Pen SUBCUT SCH ×2 (12:24→17:37)
[2020-03-06] MEDS ORDERED: Cetirizine 10 MG Tab PO SCH (21:00)
[2020-03-06] MEDS ORDERED: Sodium Chloride 0.9% 1,000 ML IV SCH (21:30)
[2020-03-07] MEDS: Piperacillin/Tazobactam 3.375 GM in Sodium Chloride 0.9% 50 ML IV SCH ×2 (00:16→05:51)
[2020-03-07 06:29] LABS: BLOOD UREA NITROGEN,BUN 15 mg/dL (7.0-18.0); CARBON DIOXIDE,CO2 19.9 mmol/L (21.0-32.0); CHLORIDE,CL 108 mmol/L (98-107); GLUCOSE RANDOM 101 mg/dL (74-106); POTASSIUM,K 3.6 mmol/L (3.5-5.1); SODIUM,NA 140 mmol/L (136-148)
[2020-03-07] MEDS: Insulin Aspart 100 Units/ML 3 ML Pen SUBCUT SCH ×2 (06:35→12:50)
[2020-03-07] MEDS ORDERED: Levofloxacin/Dextrose 5%-Water 750 MG in Premix Bag 1 BAG IV SCH (11:00)
[2020-03-07] MEDS ORDERED: Sodium Chloride 0.9% 1,000 ML IV SCH (11:00)
--- NOTE | 2020-03-07 11:41 | PCM.DCSUM1 ---
Discharge Summary - Hospital Course Brief History: 64 yo male with pmh of HTN and DM who presented to the ED with one day history of fever, rigors, and chills. PAtient reports increased urinary frequency and burning when he urinates. He denies any sick contacts. He denies any cough, shortness of breath, abdominal pain, nausea, vomtiting or diarrhea. In the ED he was noted to have a fever and was tachycardic. HE recieved IV fluids and Zosyn. CT scan of chest reported mildly prominated mediastinal lymphnodes and recommended repeat CT scan in four months. Ultrasound of abdomen reported gallbladder wall thickening and gallstone. Diagnosis: Stroke: No - Discharge Data Discharge Date: 03/07/20 Discharge Disposition: Home, Self-Care 01 Condition: Good - Referral to Home Health Primary Care Physician: PCP Not In Area - Discharge Diagnosis/Problem(s) (1) Fever SNOMED Code(s): 094956780 ICD Code: R50.9 - FEVER, UNSPECIFIED Status: Acute Current Visit: Yes (2) Prostatitis SNOMED Code(s): 6547589 ICD Code: N41.9 - INFLAMMATORY DISEASE OF PROSTATE, UNSPECIFIED Status: Acute Current Visit: Yes (3) Thrombocytopenia SNOMED Code(s): 029010687 ICD Code: D69.6 - THROMBOCYTOPENIA, UNSPECIFIED Status: Acute Current Visit: Yes (4) Hyperbilirubinemia SNOMED Code(s): 94655293 ICD Code: E80.6 - OTHER DISORDERS OF BILIRUBIN METABOLISM Status: Acute Current Visit: Yes (5) Sepsis SNOMED Code(s): 82946650 ICD Code: A41.9 - SEPSIS, UNSPECIFIED ORGANISM Status: Acute Current Visit: Yes Qualifiers: Sepsis type: sepsis due to unspecified organism Sepsis acute organ dysfunction status: without acute organ dysfunction Qualified Code(s): A41.9 - Sepsis, unspecified organism - Patient Summary/Data Hospital Course: Admitting Diagnoses: Fever Possible cholecystitis Possible Prostatitis Discharge Diagnoses: Fever COVID negative Possible Prostatitis Other PMH: DM Type 2 Neuropathy Massimo was admitted for fevers and sepsis. He was treated with IVFs and Zosyn. Lactic acid normalized. CT of abdomen pelvis obtained which revealed no acute infectious process. Gall stones noted, with no gall bladder wall thickening. No renal stones. Chest CT revealed splenomegaly, 15.1 cm and slightly prominent mediastinal lymph nodes with largest 1.[address] in 4 months to evaluate. He continues to have no symptoms. No chest pain or abdominal pain. He is eating and drinking well. Denies bleeding. He had mild temp elevation 100.2 overnight. He denies concerns this morning and is very eager for discharge. I spoke with Dr Gustafson regarding possibility of acute cholecystitis. He review imaging and labwork, felt without abdominal symptoms this is unlikely acute cholecystitis. Had some slight dysuria. Prostate exam normal and UA normal. Will treat with Levaquin for possible prostatitis for 9 more days at home. He was educated to return to ED if fevers return or abdominal pain develops or he worsens at home. he was counseled on signs of bleeding due to low platelets and was encouraged not to take NSAIDs. HIV and peripheral smear pending on discharge. He was checked x 2 for COVID and both negative. He is to return to ED or clinic if concerns should arise. - Patient Instructions Diet: Usual Diet as Tolerated Activity: No Strenuous Activities, Rest and Relax Today Showering/Bathing: May Shower Notify Provider of: Fever, Increased Pain, Swelling and Redness, Drainage, Nausea and/or Vomiting Other/Special Instructions: Monitor for signs of bleeding, dark stools, bright red blood in stool or vomit. If fevers return and you continue to feel ill, return to primary care or to the ED. Monitor for abdominal pain especially in the right upper stomach. Do not take medications such as Aleve, Naproxen, Ibuprofen or Motrin until platelet counts improve. - Discharge Plan *PRESCRIPTION DRUG MONITORING PROGRAM REVIEWED*: Not Applicable *COPY OF PRESCRIPTION DRUG MONITORING REPORT IN PATIENT GABRIELLE: Not Applicable Prescriptions/Med Rec: levoFLOXacin [Levaquin] 750 mg PO DAILY #9 tab Home Medications: Home Meds Canagliflozin [Invokana] 100 mg PO DAILY 03/06/20 [History] Cetirizine [ZyrTEC] 10 mg PO BEDTIME 03/06/20 [History] Gabapentin [Neurontin] 300 mg PO DAILY 03/06/20 [History] Losartan [Cozaar] 50 mg PO DAILY 03/06/20 [History] Pravastatin [Pravachol] 40 mg PO BEDTIME 03/06/20 [History] Saxagliptin HCl [Onglyza] 5 mg PO DAILY 03/06/20 [History] glyBURIDE/Metformin HCl [Glyburid-Metformin 1.25-250 mg] 5 - 1,000 mg PO WITHDINNER 03/06/20 [History] glyBURIDE/Metformin HCl [Glyburid-Metformin 1.25-250 mg] 7.5 - 1,500 mg PO QAM 03/06/20 [History] levoFLOXacin [Levaquin] 750 mg PO DAILY #9 tab 03/07/20 [Rx] Oxygen Therapy Mode: Room Air Patient Handouts: Sepsis, Diagnosis, Adult, Levofloxacin tablets, Sepsis, Self Care, Adult Referrals: Denisse Grimm PA [[facility]] - 03/15/20 10:00 am (Please arrive one (1) hour early to appointment for lab draw. Please bring mask from home.) - Discharge Summary/Plan Comment DC Time >30 min.: No - Patient Data Vitals - Most Recent: Last Vital Signs Temp 99.1 F 03/07/20 10:59 Pulse 76 03/07/20 10:59 Resp 15 03/07/20 10:59 BP 143/67 H 03/07/20 10:59 Pulse Ox 95 03/07/20 10:59 Weight - Most Recent: 119.5 kg I&O - Last 24 hours: Intake & Output 03/06/20 03/07/20 03/07/20 22:59 06:59 14:59 Intake Total 3650 1625 Output Total 800 900 Balance 2850 725 Lab Results - Last 24 hrs: Laboratory Results - last 24 hr 03/06/20 03/06/20 03/06/20 Range/Units 12:00 16:43 16:44 WBC (4.0-11.0) K/uL RBC (4.50-5.90) M/uL Hgb (13.0-17.0) g/dL Hct (38.0-50.0) % MCV (80.0-98.0) fL MCH (27.0-32.0) pg MCHC (31.0-37.0) g/dL RDW Std Deviation (28.0-62.0) fl RDW Coeff of Matthew (11.0-15.0) % Plt Count (150-400) K/uL MPV (7.40-12.00) fL Neut % (Auto) (48.0-80.0) % Lymph % (Auto) (16.0-40.0) % Mellette % (Auto) (0.0-15.0) % Eos % (Auto) (0.0-7.0) % Baso % (Auto) (0.0-1.5) % Neut # (Auto) (1.4-5.7) K/uL Lymph # (Auto) (0.6-2.4) K/uL Mellette # (Auto) (0.0-0.8) K/uL Eos # (Auto) (0.0-0.7) K/uL Baso # (Auto) (0.0-0.1) K/uL Nucleated RBC % /100WBC Nucleated RBCs # K/uL Sodium (136-148) mmol/L Potassium (3.5-5.1) mmol/L Chloride (98-107) mmol/L Carbon Dioxide (21.0-32.0) mmol/L BUN (7.0-18.0) mg/dL Creatinine (0.8-1.3) mg/dL Est Cr Clr Drug Dosing mL/min Estimated GFR (MDRD) ml/min Glucose (74-106) mg/dL POC Glucose 103 104 (60-110) mg/dL Calcium (8.5-10.1) mg/dL Total Bilirubin (0.2-1.0) mg/dL AST (15-37) IU/L ALT (14-63) IU/L Alkaline Phosphatase (46-116) U/L Troponin I < 0.050 (0.000-0.056) ng/mL Total Protein (6.4-8.2) g/dL Albumin (3.4-5.0) g/dL Globulin (2.6-4.0) g/dL Albumin/Globulin Ratio (0.9-1.6) COVID-19 (AUDI) (NEGATIVE) 03/07/20 03/07/20 03/07/20 Range/Units 05:20 05:20 06:22 WBC 9.58 (4.0-11.0) K/uL RBC 3.82 L (4.50-5.90) M/uL Hgb 12.6 L (13.0-17.0) g/dL Hct 38.3 (38.0-50.0) % MCV 100.3 H (80.0-98.0) fL MCH 33.0 H (27.0-32.0) pg MCHC 32.9 (31.0-37.0) g/dL RDW Std Deviation 51.6 (28.0-62.0) fl RDW Coeff of Matthew 14 (11.0-15.0) % Plt Count 50 L (150-400) K/uL MPV 12.90 H (7.40-12.00) fL Neut % (Auto) 76.1 (48.0-80.0) % Lymph % (Auto) 11.9 L (16.0-40.0) % Mellette % (Auto) 11.3 (0.0-15.0) % Eos % (Auto) 0.5 (0.0-7.0) % Baso % (Auto) 0.2 (0.0-1.5) % Neut # (Auto) 7.3 H (1.4-5.7) K/uL Lymph # (Auto) 1.1 (0.6-2.4) K/uL Mellette # (Auto) 1.1 H (0.0-0.8) K/uL Eos # (Auto) 0.1 (0.0-0.7) K/uL Baso # (Auto) 0.0 (0.0-0.1) K/uL Nucleated RBC % 0.0 /100WBC Nucleated RBCs # 0 K/uL Sodium 140 (136-148) mmol/L Potassium 3.6 (3.5-5.1) mmol/L Chloride 108 H (98-107) mmol/L Carbon Dioxide 19.9 L (21.0-32.0) mmol/L BUN 15 (7.0-18.0) mg/dL Creatinine 0.9 (0.8-1.3) mg/dL Est Cr Clr Drug Dosing 84.01 mL/min Estimated GFR (MDRD) > 60.0 ml/min Glucose 101 (74-106) mg/dL POC Glucose 94 (60-110) mg/dL Calcium 7.7 L (8.5-10.1) mg/dL Total Bilirubin 1.8 H (0.2-1.0) mg/dL AST 43 H (15-37) IU/L ALT 37 (14-63) IU/L Alkaline Phosphatase 80 (46-116) U/L Troponin I (0.000-0.056) ng/mL Total Protein 6.0 L (6.4-8.2) g/dL Albumin 2.7 L (3.4-5.0) g/dL Globulin 3.3 (2.6-4.0) g/dL Albumin/Globulin Ratio 0.8 L (0.9-1.6) COVID-19 (AUDI) (NEGATIVE) 03/07/20 Range/Units 10:40 WBC (4.0-11.0) K/uL RBC (4.50-5.90) M/uL Hgb (13.0-17.0) g/dL Hct (38.0-50.0) % MCV (80.0-98.0) fL MCH (27.0-32.0) pg MCHC (31.0-37.0) g/dL RDW Std Deviation (28.0-62.0) fl RDW Coeff of Matthew (11.0-15.0) % Plt Count (150-400) K/uL MPV (7.40-12.00) fL Neut % (Auto) (48.0-80.0) % Lymph % (Auto) (16.0-40.0) % Mellette % (Auto) (0.0-15.0) % Eos % (Auto) (0.0-7.0) % Baso % (Auto) (0.0-1.5) % Neut # (Auto) (1.4-5.7) K/uL Lymph # (Auto) (0.6-2.4) K/uL Mellette # (Auto) (0.0-0.8) K/uL Eos # (Auto) (0.0-0.7) K/uL Baso # (Auto) (0.0-0.1) K/uL Nucleated RBC % /100WBC Nucleated RBCs # K/uL Sodium (136-148) mmol/L Potassium (3.5-5.1) mmol/L Chloride (98-107) mmol/L Carbon Dioxide (21.0-32.0) mmol/L BUN (7.0-18.0) mg/dL Creatinine (0.8-1.3) mg/dL Est Cr Clr Drug Dosing mL/min Estimated GFR (MDRD) ml/min Glucose (74-106) mg/dL POC Glucose (60-110) mg/dL Calcium (8.5-10.1) mg/dL Total Bilirubin (0.2-1.0) mg/dL AST (15-37) IU/L ALT (14-63) IU/L Alkaline Phosphatase (46-116) U/L Troponin I (0.000-0.056) ng/mL Total Protein (6.4-8.2) g/dL Albumin (3.4-5.0) g/dL Globulin (2.6-4.0) g/dL Albumin/Globulin Ratio (0.9-1.6) COVID-19 (AUDI) NEGATIVE (NEGATIVE) GENIE Results - Last 24 hrs: Microbiology 03/05/20 19:22 Aerobic Blood Culture - Preliminary Blood - Venous NO GROWTH AFTER 1 DAY Anaerobic Blood Culture - Preliminary NO GROWTH AFTER 1 DAY 03/05/20 18:55 Aerobic Blood Culture - Preliminary Blood - Venous - Lab Draw NO GROWTH AFTER 1 DAY Anaerobic Blood Culture - Preliminary NO GROWTH AFTER 1 DAY Med Orders - Current: Current Medications Cetirizine HCl (Zyrtec) 10 mg PO BEDTIME [facility] Last Admin: 03/06/20 21:19 Dose: 10 mg Documented by: Levofloxacin/Dextrose 750 mg/ (Premix) 150 mls @ 100 mls/hr IV Q24H [facility] Last Admin: 03/07/20 11:14 Dose: 100 mls/hr Documented by: Sodium Chloride (Normal Saline) 1,000 mls @ 125 mls/hr IV Q8H [facility] Last Admin: 03/07/20 11:14 Dose: 125 mls/hr Documented by: Insulin Aspart (Novolog) 0 unit SUBCUT TIDAC [facility]; Protocol Last Admin: 03/07/20 06:35 Dose: Not Given Documented by: Sodium Chloride (Saline Flush) 10 ml FLUSH ASDIRECTED PRN PRN Reason: Keep Vein Open Sodium Chloride (Saline Flush) 2.5 ml FLUSH ASDIRECTED PRN PRN Reason: Keep Vein Open Discontinued Medications Acetaminophen (Tylenol Extra Strength) 1,000 mg PO ONETIME ONE Stop: 03/05/20 19:06 Last Admin: 03/05/20 19:10 Dose: 1,000 mg Documented by: Acetaminophen (Tylenol Extra Strength) Confirm Administered Dose 1,000 mg .ROUTE .STK-MED ONE Stop: 03/05/20 19:07 Last Admin: 03/05/20 19:11 Dose: Not Given Documented by: Sodium Chloride (Normal Saline) 1,000 mls @ 999 mls/hr IV .Bolus ONE Stop: 03/05/20 20:00 Last Admin: 03/05/20 19:10 Dose: 999 mls/hr Documented by: Ceftriaxone Sodium 1 gm/ (Sodium Chloride) 50 mls @ 100 mls/hr IV ONETIME ONE Stop: 03/05/20 21:12 Last Admin: 03/05/20 21:01 Dose: 100 mls/hr Documented by: Sodium Chloride (Normal Saline) Confirm Administered Dose 50 mls @ as directed .ROUTE .STK-MED ONE Stop: 03/05/20 20:58 Last Admin: 03/05/20 23:45 Dose: Not Given Documented by: Piperacillin Sod/Tazobactam (Sod 3.375 gm/ Sodium Chloride) 50 mls @ 100 mls/hr IV ONETIME ONE Stop: 03/06/20 00:01 Last Admin: 03/05/20 23:50 Dose: 100 mls/hr Documented by: Sodium Chloride (Normal Saline) 1,000 mls @ 250 mls/hr IV ASDIRECTED [facility] Last Infusion: 03/06/20 04:14 Dose: Infused Documented by: Sodium Chloride (Normal Saline) 1,000 mls @ 250 mls/hr IV ASDIRECTED [facility] Last Admin: 03/06/20 17:39 Dose: 250 mls/hr Documented by: Piperacillin Sod/Tazobactam (Sod 3.375 gm/ Sodium Chloride) 50 mls @ 100 mls/hr IV Q6H [facility] Last Admin: 03/07/20 05:51 Dose: 100 mls/hr Documented by: Sodium Chloride (Normal Saline) 1,000 mls @ 125 mls/hr IV ASDIRECTED [facility] Last Admin: 03/06/20 23:00 Dose: 125 mls/hr Documented by: Ibuprofen (Motrin) 600 mg PO ONETIME ONE Stop: 03/05/20 20:12 Last Admin: 03/05/20 20:22 Dose: 600 mg Documented by: Ibuprofen (Motrin) Confirm Administered Dose 600 mg .ROUTE .STK-MED ONE Stop: 03/05/20 20:12 Last Admin: 03/05/20 21:02 Dose: Not Given Documented by: - Exam General: Reports: Alert, Oriented, Cooperative, No Acute Distress Lungs: Reports: Clear to Auscultation, Normal Respiratory Effort Cardiovascular: Reports: Regular Rate, Regular Rhythm GI/Abdominal Exam: Normal Bowel Sounds, Soft, Non-Tender, No Distention Wound/Incisions: Reports: Healing Well Neurological: Reports: No New Focal Deficit Psy/Mental Status: Reports: Alert, Normal Affect, Normal Mood
== END 2020-03-07 13:00 | disposition home or self-care (01) ==
LOC: MW.ED 18:48 → MW.MS 03-06 00:08
PROVIDERS: ADMIT Internal Medicine; ATTEND Internal Medicine
DX: A41.9 Sepsis, unspecified organism (principal); E11.40 Type 2 diabetes mellitus with diabetic neuropathy, unspecified; I10 Essential (primary) hypertension; E78.00 Pure hypercholesterolemia, unspecified; D69.6 Thrombocytopenia, unspecified; E80.6 Other disorders of bilirubin metabolism; R16.1 Splenomegaly, not elsewhere classified; Z20.828 Contact with and (suspected) exposure to other viral communicable diseases; Z79.84 Long term (current) use of oral hypoglycemic drugs; Z87.891 Personal history of nicotine dependence; Z79.899 Other long term (current) drug therapy
CPT/HCPCS: 36415; 71046; 71250; 74176; 76705; 80053; 81001; 82962; 83605; 84484; 85025; 86308; 87040; 87086; 87389; 87635; 87804; 88104; 93005; 96361; 96365; 96367; 96376; 99285; A9270; G0378; J0696; J1956; J2543; J7030; J7050; U0002